=== PATIENT | female | born 1980 | race Caucasian/White ===

== ENCOUNTER 2016-12-11 11:55 | Emergency (ER) | payer SELFPAY ==
[~2016-12-11] VITALS: Ht 162.6 cm; Wt 63.0 kg
[2016-12-11 12:07] VITALS: BP 110/59; PULSE 97; RESP 18; TEMP 99.1; O2SAT 100
[2016-12-11] MEDS ORDERED: TYLE325T PO (12:12)
[2016-12-11] MEDS ORDERED: IBUP-1129 PO (12:12)
[2016-12-11] MEDS ORDERED: SODIUM CHLOR 0.9% 1000 ML INJ 1,000 ML IV SCH (12:17)
--- NOTE | 2016-12-11 12:23 | PD ---
HPI Chief Complaint: Flank/Kidney Pain Time Seen by Provider: 12:00 Travel History International Travel<30 days: No Contact w/Intl Traveler<30days: No Traveled to known affect area: No History of Present Illness HPI The patient is a 36-year-old female who presents emergency department for 3 days of right flank pain. The patient's pain started 3 days ago, is located in the right flank and right mid back, nonradiating, associated with mild frequency, however, she denies any urgency or dysuria. The patient does have a history of recurrent urinary tract infections. She does note subjective fevers with intermittent chills and sweats. She also complains of nausea and vomiting this morning secondary to pain. She does have a history of recurrent urinary tract infections. She denies any change in vaginal discharge. She denies , is , states her had a vasectomy. The patient recently moved to the local area last January, does not have a local primary physician. Symptoms are moderate, possibly exacerbated by underlying infection , and there are no current alleviating factors. PFSH Past Medical History Narrative Medical Recurrent urinary tract infections, psoriasis Genitourinary: Yes (FREQUENT UTI) Integumentary: Yes (PSORIASIS) Influenza Vaccination: No ?: Not LMP: 11/22/2016 Past Surgical History Surgical History: No Previous Surgery Section: Yes Social History Alcohol Use: Yes Tobacco Use: No Allergies-Medications (Allergen,Severity, Reaction): Coded Allergies: Ultram (Verified Allergy, Severe, Nausea/Vomiting, 12/11/16) Reported Meds & Prescriptions Reported Meds & Active Scripts Active Reported Motrin Ib (Ibuprofen) 200 Mg Tablet 200 Mg PO DIRECTED Tylenol (Acetaminophen) 325 Mg Tab 1,000 Mg PO Q6H PRN Review of Systems Except as stated in HPI: all other systems reviewed are Neg General / Constitutional: Positive: Fever, Chills Gastrointestinal: Positive: Nausea, Vomiting Genitourinary: Positive: Frequency, Flank Pain, No: Dysuria, Hematuria Skin: No Rash Physical Exam Narrative GENERAL: Awake, alert, pleasant 36 year-old female who appears her stated age and is in no acute respiratory distress. SKIN: Focused skin assessment warm/dry. Slightly diaphoretic. HEAD: Atraumatic. Normocephalic. EYES: Pupils equal and round. No scleral icterus. No injection or drainage. ENT: No nasal bleeding or discharge. Mucous membranes pink and moist. NECK: Trachea midline. No JVD. CARDIOVASCULAR: Regular rate and rhythm. No murmur appreciated. Heart rate in the 90s. RESPIRATORY: No accessory muscle use. Clear to auscultation. Breath sounds equal bilaterally. GASTROINTESTINAL: Abdomen soft, non-tender, nondistended. Back: Mild right flank and lower CVA tenderness. MUSCULOSKELETAL: No obvious deformities. No clubbing. No cyanosis. No edema. NEUROLOGICAL: Awake and alert. No obvious cranial nerve deficits. Motor grossly within normal limits. Normal speech. PSYCHIATRIC: Appropriate mood and affect; insight and judgment normal. Data Data Last Documented VS Vital Signs Date Time Temp Pulse Resp B/P Pulse Ox O2 Delivery O2 Flow Rate FiO2 12/11/16 12:51 82 18 101/55 99 Room Air 12/11/16 12:07 99.1 Orders Complete Blood Count With Diff (12/11/16 12:17) Comprehensive Metabolic Panel (12/11/16 12:17) Lactic Acid (12/11/16 12:17) Urinalysis - C+S If Indicated (12/11/16 12:17) Iv Access Insert/Monitor (12/11/16 12:17) Ecg Monitoring (12/11/16 12:17) Oximetry (12/11/16 12:17) Morphine Inj (Morphine Inj) (12/11/16 12:30) Ondansetron Inj (Zofran Inj) (12/11/16 12:30) Ceftriaxone Inj (Rocephin Inj) (12/11/16 12:30) Sodium Chlor 0.9% 1000 Ml Inj (Ns 1000 M (12/11/16 12:17) Sodium Chloride 0.9% Flush (Ns Flush) (12/11/16 12:30) Ketorolac Inj (Toradol Inj) (12/11/16 12:30) Ed Urine Pregnancytest Poc (12/11/16 12:17) Acetaminophen (Tylenol) (12/11/16 12:30) Urine Culture (12/11/16 12:15) Potassium Chloride (Kcl) (12/11/16 13:00) Labs Laboratory Tests Test 12/11/16 12/11/16 12/11/16 12:15 12:33 12:35 Urine Collection Type VOIDED Urine Color YELLOW Urine Turbidity CLOUDY Urine pH 6.0 Urine Specific [place] 1.012 Urine Protein 100 mg/dL Urine Glucose (UA) NEG mg/dL Urine Ketones NEG mg/dL Urine Occult Blood LARGE Urine Nitrite NEG Urine Bilirubin NEG Urine Leukocyte Esterase MOD Urine RBC 0-3 /hpf Urine WBC INNUM /hpf Urine WBC Clumps FEW Urine Squamous Epithelial 0-2 /hpf Cells Urine Bacteria MOD /hpf Microscopic Urinalysis Comment CULTURE INDICATED White Blood Count 13.2 TH/MM3 Red Blood Count 3.72 MIL/MM3 Hemoglobin 11.8 GM/DL Hematocrit 34.6 % Mean Corpuscular Volume 93.1 FL Mean Corpuscular Hemoglobin 31.6 PG Mean Corpuscular Hemoglobin 34.0 % Concent Red Cell Distribution Width 11.3 % Platelet Count 208 TH/MM3 Mean Platelet Volume 7.9 FL Neutrophils (%) (Auto) 92.1 % Lymphocytes (%) (Auto) 4.8 % Monocytes (%) (Auto) 2.5 % Eosinophils (%) (Auto) 0.3 % Basophils (%) (Auto) 0.3 % Neutrophils # (Auto) 12.3 TH/MM3 Lymphocytes # (Auto) 0.6 TH/MM3 Monocytes # (Auto) 0.3 TH/MM3 Eosinophils # (Auto) 0.0 TH/MM3 Basophils # (Auto) 0.0 TH/MM3 CBC Comment DIFF FINAL Differential Comment Sodium Level 135 MEQ/L Potassium Level 3.2 MEQ/L Chloride Level 105 MEQ/L Carbon Dioxide Level 22.7 MEQ/L Anion Gap 7 MEQ/L Blood Urea Nitrogen 9 MG/DL Creatinine 0.92 MG/DL Estimat Glomerular Filtration 69 ML/MIN Rate Random Glucose 120 MG/DL Calcium Level 8.1 MG/DL Total Bilirubin 0.3 MG/DL Aspartate Amino Transf 34 U/L (AST/SGOT) Alanine Aminotransferase 28 U/L (ALT/SGPT) Alkaline Phosphatase 68 U/L Total Protein 6.9 GM/DL Albumin 3.1 GM/DL Lactic Acid Level 1.7 mmol/L [facility] Medical Decision Making Medical Screen Exam Complete: Yes Emergency Medical Condition: Yes Medical Record Reviewed: Yes Interpretation(s) Laboratory Tests Test 12/11/16 12/11/16 12/11/16 12:15 12:33 12:35 Urine Collection Type VOIDED Urine Color YELLOW Urine Turbidity CLOUDY Urine pH 6.0 Urine Specific [place] 1.012 Urine Protein 100 mg/dL Urine Glucose (UA) NEG mg/dL Urine Ketones NEG mg/dL Urine Occult Blood LARGE Urine Nitrite NEG Urine Bilirubin NEG Urine Leukocyte Esterase MOD Urine RBC 0-3 /hpf Urine WBC INNUM /hpf Urine WBC Clumps FEW Urine Squamous Epithelial 0-2 /hpf Cells Urine Bacteria MOD /hpf Microscopic Urinalysis Comment CULTURE INDICATED White Blood Count 13.2 TH/MM3 Red Blood Count 3.72 MIL/MM3 Hemoglobin 11.8 GM/DL Hematocrit 34.6 % Mean Corpuscular Volume 93.1 FL Mean Corpuscular Hemoglobin 31.6 PG Mean Corpuscular Hemoglobin 34.0 % Concent Red Cell Distribution Width 11.3 % Platelet Count 208 TH/MM3 Mean Platelet Volume 7.9 FL Neutrophils (%) (Auto) 92.1 % Lymphocytes (%) (Auto) 4.8 % Monocytes (%) (Auto) 2.5 % Eosinophils (%) (Auto) 0.3 % Basophils (%) (Auto) 0.3 % Neutrophils # (Auto) 12.3 TH/MM3 Lymphocytes # (Auto) 0.6 TH/MM3 Monocytes # (Auto) 0.3 TH/MM3 Eosinophils # (Auto) 0.0 TH/MM3 Basophils # (Auto) 0.0 TH/MM3 CBC Comment DIFF FINAL Differential Comment Sodium Level 135 MEQ/L Potassium Level 3.2 MEQ/L Chloride Level 105 MEQ/L Carbon Dioxide Level 22.7 MEQ/L Anion Gap 7 MEQ/L Blood Urea Nitrogen 9 MG/DL Creatinine 0.92 MG/DL Estimat Glomerular Filtration 69 ML/MIN Rate Random Glucose 120 MG/DL Calcium Level 8.1 MG/DL Total Bilirubin 0.3 MG/DL Aspartate Amino Transf 34 U/L (AST/SGOT) Alanine Aminotransferase 28 U/L (ALT/SGPT) Alkaline Phosphatase 68 U/L Total Protein 6.9 GM/DL Albumin 3.1 GM/DL Lactic Acid Level 1.7 mmol/L Differential Diagnosis Differential diagnosis includes pyelonephritis, nephrolithiasis, UTI, atypical appendicitis, PID, cervicitis, ectopic . Narrative Course IV was established, labs are drawn and sent, and the patient was placed on cardiac telemetry monitoring and continuous pulse oximetry monitoring. The patient was catechist morphine, Toradol, Tylenol, Zofran, and IV fluids for her symptoms. UA was sent to lab. Bedside UA test was obtained, was negative. White count is mildly elevated at 13.2, UA reveals innumerable WBCs, lactic acid is normal 1.7. Potassium is low at 3.2, was replaced orally. The patient was reevaluated at 1:06 PM. The patient's symptoms had improved, heart rate was down 80. The patient will be discharged home on Bactrim, urine cultures pending. She is advised to return if symptoms worsen or progress. Diagnosis Primary Impression: Pyelonephritis Patient Instructions: General Instructions Additional Instructions: Medications as directed. Follow-up with a primary physician. Return if symptoms worsen or progress. Plenty fluids to stay hydrated. Work excuse for 2 days. Med/Other Pt SpecificInfo: Prescription(s) given Scripts Ondansetron Odt (Zofran Odt)4 Mg Tab4 Mg SL Q6HR PRN (Nausea/Vomiting) #7 TAB Ref 0 Prov:Star Choudhary MD 12/11/16 Sulfamethoxazole-Trimethoprim (Bactrim DS)800-160 Mg Tab1 Tab PO BID #14 TAB Ref 0 Prov:Star Choudhary MD 12/11/16 Disposition: DISCHARGE HOME Condition: Stable Star Choudhary MD Dec 11, 2016 12:23
[2016-12-11 12:25] LABS: BLOOD, URINE LARGE (NEG); GLUCOSE,URINE NEG (NEG); KETONE, URINE NEG (NEG); NITRITE,URINE NEG (NEG)
[2016-12-11 12:27] LABS: METHOD OF COLLECTION VOIDED; URINE COLOR YELLOW (YELLW/STRAW)
[2016-12-11 12:29] LABS: WBC, URINE INNUM /hpf (0-5)
[2016-12-11 12:30] LABS: BACTERIA, URINE MOD /hpf; COMMENT (UR) CULTURE INDICATED; CULTURE IF INDICATED CULTURE INDICATED; RBC, URINE 0-3 /hpf (0-3); SQUAMOUS EPITHELIAL CELL URINE 0-2 /hpf (0-5)
[2016-12-11] MEDS ORDERED: ACETAMINOPHEN 325 MG TAB PO ONE (12:30)
[2016-12-11] MEDS ORDERED: SODIUM CHLORIDE 0.9% FLUSH 10 ML FLUSH IV FLUSH PRN (12:30)
[2016-12-11] MEDS ORDERED: MORPHINE SULFATE 4 MG/ML INJ IV PUSH ONE (12:30)
[2016-12-11] MEDS ORDERED: ONDANSETRON HCL 4 MG/2 ML VIAL IVP ONE (12:30)
[2016-12-11] MEDS ORDERED: cefTRIAXone INJ 1,000 MG in SODIUM CHLORIDE 0.9% INJ 100 ML IV ONE (12:30)
[2016-12-11] MEDS ORDERED: KETOROLAC TROMETHAMINE 30 MG/ML (IVP) VIAL IVP ONE (12:30)
[2016-12-11 12:40] LABS: AUTOMATED NEUTROPHIL # 12.3 TH/MM3 (1.8-7.7); BASOPHIL % 0.3 % (0.0-2.0); EOSINOPHIL % 0.3 % (0.0-4.0); HEMATOCRIT 34.6 % (35.0-46.0); HEMO FLAGS DIFF FINAL; LYMPH % 4.8 % (9.0-44.0); LYMPHOCYTE # 0.6 TH/MM3 (1.0-4.8); MEAN CELL VOLUME 93.1 FL (80.0-100.0); MEAN CORPUSCULAR HEMOGLOBIN 31.6 PG (27.0-34.0); MONO % 2.5 % (0.0-8.0); NEUT % 92.1 % (16.0-70.0); PLATELET COUNT 208 TH/MM3 (150-450); RED BLOOD COUNT 3.72 MIL/MM3 (4.00-5.30); RED CELL DISTRIBUTION WIDTH 11.3 % (11.6-17.2); WHITE BLOOD COUNT 13.2 TH/MM3 (4.0-11.0)
[2016-12-11 12:49] LABS: CHLORIDE 105 MEQ/L (98-107); POTASSIUM 3.2 MEQ/L (3.5-5.1); SODIUM (NA) 135 MEQ/L (136-145)
[2016-12-11 12:51] VITALS: BP 101/55; PULSE 82; RESP 18; O2SAT 99
[2016-12-11 12:53] LABS: ANION GAP 7 MEQ/L (5-15); BICARBONATE 22.7 MEQ/L (21.0-32.0); BLOOD UREA NITROGEN 9 MG/DL (7-18)
[2016-12-11 12:56] LABS: ALT (GPT) 28 U/L (10-53); AST (GOT) 34 U/L (15-37); GLOMERULAR FILTRATION RATE 69 ML/MIN (>89)
[2016-12-11 12:57] LABS: TOTAL BILIRUBIN ADULT 0.3 MG/DL (0.2-1.0)
[2016-12-11 12:59] LABS: ALKALINE PHOSPHATASE 68 U/L (45-117)
[2016-12-11] MEDS ORDERED: POTASSIUM CHLORIDE 20 MEQ CONTROLLED RELEASE TAB PO ONE (13:00)
[2016-12-11] MEDS ORDERED: ZOFR4TAB3 SL (13:09)
[2016-12-11] MEDS ORDERED: BACT800T5 PO (13:09)
== END 2016-12-11 14:22 | disposition home or self-care (01) ==
LOC: PHED 11:55
DX: N12 Tubulo-interstitial nephritis, not specified as acute or chronic (principal); B96.89 Other specified bacterial agents as the cause of diseases classified elsewhere
CPT/HCPCS: 80053; 81001; 83605; 84703; 85025; 87077; 87086; 87186; 96361; 96365; 96375; 99284; J0696; J1885; J2270; J2405; J7030